=== PATIENT | male | born 1990 | race Caucasian/White ===

== ENCOUNTER 2016-11-18 23:45 | Emergency (ER) | payer SELFPAY ==
[~2016-11-18 23:45] MED LIST: APAP/HYDROCODON1 T13 PO; STOOL SOFTENER100 MG PO; ZOC10 PO
[2016-11-19 02:17] VITALS: BP 169/101
== END 2016-11-19 02:17 | disposition home or self-care (01) ==
LOC: ED 23:45
DX: J40 Bronchitis, not specified as acute or chronic (principal)
CPT/HCPCS: J7613; J7644

== ENCOUNTER 2016-12-01 20:21 | Emergency (ER) | payer OTHER ==
[2016-12-02 00:55] VITALS: BP 162/71
== END 2016-12-02 00:55 | disposition home or self-care (01) ==
LOC: ED 20:21
DX: S97.82XA Crushing injury of left foot, initial encounter (principal); X58.XXXA Exposure to other specified factors, initial encounter; Y93.89 Activity, other specified; Y99.8 Other external cause status; Y92.89 Other specified places as the place of occurrence of the external cause
CPT/HCPCS: J1885

== ENCOUNTER 2017-03-06 22:47 | Emergency (ER) | payer SELFPAY ==
[2017-03-07 03:00] VITALS: BP 165/87
== END 2017-03-07 03:00 | disposition home or self-care (01) ==
LOC: ED 22:47
DX: K59.00 Constipation, unspecified (principal); M54.9 Dorsalgia, unspecified; E66.01 Morbid (severe) obesity due to excess calories
CPT/HCPCS: J1885

== ENCOUNTER 2017-08-15 22:34 | Emergency (ER) | payer SELFPAY ==
[~2017-08-15] VITALS: Ht 188 cm; Wt 113.4 kg
[2017-08-15 22:41] VITALS: Ht 188 cm; Wt 113.4 kg
[2017-08-16 00:39] VITALS: BP 150/105
== END 2017-08-16 00:40 | disposition other institution (70) ==
LOC: ED 22:34
DX: F15.10 Other stimulant abuse, uncomplicated (principal); I10 Essential (primary) hypertension

== ENCOUNTER 2017-08-15 22:34 | Emergency (ER) | payer OTHER | END 2017-08-16 00:40 | disposition other institution (70) | LOC: ED 22:34 | DX: Z02.89 Encounter for other administrative examinations (principal) ==

== ENCOUNTER 2019-02-01 21:59 | Emergency (ER) | payer SELFPAY ==
[~2019-02-01] VITALS: Ht 190.5 cm; Wt 123.8 kg
[2019-02-01 22:19] VITALS: Ht 190.5 cm; Wt 123.8 kg
[2019-02-02 01:27] LABS: BASOPHIL % 0.4 % (0-2); PLATELET COUNT 273 x10^3mcL (130-400); RED CELL DISTRIBUTION WIDTH 14.1 % (11.5-14.5)
[2019-02-02 01:32] LABS: CALCIUM 9.3 mg/dL (8.5-10.1); CARBON DIOXIDE 31.5 mmol/L (21-32); CHLORIDE SERUM 103 mmol/L (98-107); GFR1 > 60 mL/min; GLUCOSE SERUM 97 mg/dL (74-106); POTASSIUM SERUM 3.3 mmol/L (3.5-5.1); SODIUM SERUM 142 mmol/L (136-145)
[2019-02-02 01:37] LABS: ALKALINE PHOSPHATASE 78 U/L (46-116); ALT/SGPT 34 U/L (16-63); AST/SGOT 17 U/L (15-37); BILIRUBIN TOTAL 0.88 mg/dL (0.20-1.00); TOTAL PROTEIN, SERUM 7.9 g/dL (6.4-8.2)
[2019-02-02 04:38] VITALS: BP 165/103
== END 2019-02-02 04:38 | disposition home or self-care (01) ==
LOC: ED 21:59
PROVIDERS: Emergency Medicine
DX: N34.2 Other urethritis (principal); I10 Essential (primary) hypertension; Z90.89 Acquired absence of other organs
CPT/HCPCS: 36415; 87491; 87591; J0696

== ENCOUNTER 2019-04-14 17:48 | Emergency (ER) | payer SELFPAY ==
[~2019-04-14] VITALS: Ht 182.9 cm; Wt 117.5 kg
[2019-04-14 17:59] VITALS: Ht 182.9 cm; Wt 117.5 kg
[2019-04-14 19:38] LABS: microscopic required? YES; urine erythrocyte 2+ (NEGATIVE)
[2019-04-14 20:03] VITALS: BP 147/93
== END 2019-04-14 20:03 | disposition home or self-care (01) ==
LOC: ED 17:48
PROVIDERS: Emergency Medicine
DX: N39.0 Urinary tract infection, site not specified (principal); I10 Essential (primary) hypertension; Z87.19 Personal history of other diseases of the digestive system; Z90.89 Acquired absence of other organs
CPT/HCPCS: J0696

== ENCOUNTER 2019-06-14 00:46 | Inpatient (IN) | payer SELFPAY ==
[~2019-06-14] VITALS: Ht 188 cm; Wt 119.4 kg
[2019-06-14 00:48] VITALS: Ht 188 cm; Wt 119.4 kg
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
--- NOTE | 2019-06-14 01:03 | NUR ---
AWAITING MSE AT THIS TIME
--- NOTE | 2019-06-14 01:05 | NUR ---
PT PLACED IN C COLLAR FOR SPINAL PROTECTION AND MAINTENANCE OF C-SPINE
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
--- NOTE | 2019-06-14 01:40 | NUR ---
PT ABLE TO EXPRESS THE NEED TO URINATE AND ABLE TO URINATE WITH HELP. PT STILL APPEARS LETHARGIC AND UNRESPONSIVE TO QUESTIONS. PT HAS MILD SPONTANEOUS EYE MOVEMENT
--- NOTE | 2019-06-14 01:55 | NUR ---
X RAY AT BEDSIDE
[2019-06-14 02:09] LABS: ALBUMIN 3.9 g/dL (3.4-5.0); ALKALINE PHOSPHATASE 79 U/L (46-116); ALT/SGPT 40 U/L (16-63); AST/SGOT 23 U/L (15-37); BILIRUBIN TOTAL 0.37 mg/dL (0.20-1.00); CALCIUM 8.7 mg/dL (8.5-10.1); CARBON DIOXIDE 32.2 mmol/L (21-32); CHLORIDE SERUM 101 mmol/L (98-107); CREATININE SERUM 1.1 mg/dL (0.7-1.3); GFR1 > 60 mL/min; GLUCOSE SERUM 99 mg/dL (74-106); SODIUM SERUM 142 mmol/L (136-145); TOTAL PROTEIN, SERUM 7.1 g/dL (6.4-8.2)
[2019-06-14 02:12] LABS: microscopic required? YES; urine erythrocyte NEGATIVE (NEGATIVE)
[2019-06-14 02:12] LABS: BASOPHIL % 0.4 % (0-2); RED CELL DISTRIBUTION WIDTH 13.5 % (11.5-14.5)
[2019-06-14 02:13] LABS: POTASSIUM SERUM 2.6 mmol/L (3.5-5.1)
[2019-06-14 02:26] LABS: AMPHETAMINE QUAL UR POSITIVE (See below)
[2019-06-14 02:27] LABS: PLATELET COUNT 295 x10^3mcL (130-400)
--- NOTE | 2019-06-14 02:55 | NUR ---
PT ABLE TO EXPRESS THAT IV IS BURNING DUE TO POTASSIUM ADMINISTRATION. MD SINGH MADE AWARE. AWAITING NEW MEDICATION ORDERS AT THIS TIME FOR NS TO RUN WITH K
--- NOTE | 2019-06-14 03:22 | NUR ---
C- SPINE CLEARED BY MD SINGH C COLLAR REMOVED AT THIS TIME PT ABLE TO SPEAK IN CLEAR AND FULL SENTENCES AND EXPRESS ALL NEEDS AND DESIRE TO LEAVE AT THIS TIME. FRIEND STILL AT BEDSIDE WITH PT
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
[2019-06-14 06:07] VITALS: BP 176/101
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
[2019-06-14 07:08] LABS: BASOPHIL % 0.7 % (0-2); PLATELET COUNT 254 x10^3mcL (130-400); RED CELL DISTRIBUTION WIDTH 14.4 % (11.5-14.5)
--- NOTE | 2019-06-14 07:20 | NUR ---
RECEIVED PT FROM WASHING MACHINE ASSEMBLER NURSE. PT IN BED SLEEPING, AROUSABLE, RESP E/U ON RA. NO SIGNS OF ACUTE DISTRESS NOTED. IV TO RAC W/ NO SIGNS OF INFILTRATION, IVF INFUSING WELL. BED IN LOWEST POSITION AND CALL LIGHT WITHIN REACH. WILL CONTINUE TO MONITOR.
[2019-06-14 07:25] LABS: CALCIUM 7.7 mg/dL (8.5-10.1); CARBON DIOXIDE 30.3 mmol/L (21-32); CHLORIDE SERUM 104 mmol/L (98-107); CREATININE SERUM 0.9 mg/dL (0.7-1.3); GFR1 > 60 mL/min; GLUCOSE SERUM 96 mg/dL (74-106); MAGNESIUM 1.7 mg/dL (1.8-2.4); PHOSPHOROUS 3.5 mg/dL (2.5-4.9); SODIUM SERUM 142 mmol/L (136-145)
[2019-06-14 07:46] LABS: POTASSIUM SERUM 2.9 mmol/L (3.5-5.1)
[2019-06-14 08:26] VITALS: BP 148/86
--- NOTE | 2019-06-14 11:38 | NUR ---
PT IN BED SLEEPING, AROUSABLE, RESP E/U ON RA. NO SIGNS OF ACUTE DISTRESS NOTED. BED IN LOWEST POSITION AND CALL LIGHT WITHIN REACH. WILL CONTINUE TO MONITOR.
[2019-06-14 12:25] LABS: BASOPHIL % 0.2 % (0-2); PLATELET COUNT 244 x10^3mcL (130-400); RED CELL DISTRIBUTION WIDTH 14.2 % (11.5-14.5)
[2019-06-14 12:28] LABS: CALCIUM 8.2 mg/dL (8.5-10.1); CARBON DIOXIDE 31.6 mmol/L (21-32); CHLORIDE SERUM 104 mmol/L (98-107); CREATININE SERUM 0.8 mg/dL (0.7-1.3); GFR1 > 60 mL/min; GLUCOSE SERUM 89 mg/dL (74-106); SODIUM SERUM 142 mmol/L (136-145)
[2019-06-14 12:35] LABS: POTASSIUM SERUM 2.8 mmol/L (3.5-5.1)
--- NOTE | 2019-06-14 12:40 | NUR ---
LAB CALLED FOR CRITICAL VALUE K: 2.8. DR. ROMO INFORMED AT THIS TIME, ORDERED FOR IV POTASSIUM AND FOR RECHECK OF LAB VALUE LATER THIS AFTERNOON.
--- NOTE | 2019-06-14 13:16 | NUR ---
Discount pharmacy card and list to low cost medical clinics given to patient by Shirley Gil.
[2019-06-14 17:08] VITALS: BP 159/104
[2019-06-14 17:14] LABS: CALCIUM 8.1 mg/dL (8.5-10.1); CARBON DIOXIDE 32.9 mmol/L (21-32); CHLORIDE SERUM 104 mmol/L (98-107); CREATININE SERUM 0.9 mg/dL (0.7-1.3); GFR1 > 60 mL/min; GLUCOSE SERUM 92 mg/dL (74-106); POTASSIUM SERUM 3.3 mmol/L (3.5-5.1); SODIUM SERUM 141 mmol/L (136-145)
[2019-06-14] MEDS ORDERED: POTASSIUM CHLO20 ME1 PO (17:33)
--- NOTE | 2019-06-14 18:05 | NUR ---
PT RESTING IN BED, AOX4, RESP E/U ON RA. DENIES NAUSEA, SOB OR PAIN, NO ACUTE DISTRESS NOTED. IV TO RAC W/ NO SIGNS OF INFILTRATION, IVF INFUSING WELL. DRESSING TO L ELBOW AND L KNEE CDI. BED IN LOWEST POSITION AND CALL LIGHT WITHIN REACH. WILL ENDORSE TO ONCOMING NURSE.
[2019-06-14 18:07] VITALS: BP 159/104
[2019-06-14 19:13] VITALS: BP 158/101
--- NOTE | 2019-06-14 19:15 | NUR ---
PT FOR DISCHARGE. PT AWAKE AND ALERT, ORIENTED TO NAME, PLACE, TIME AND SITUATION. STATED HIS COUSIN IS ALREADY HERE WITH PRIVATE AUTO TO BRING HOME. PT BREATHING EVEN AND UNLABORED ON ROOM AIR. NOTED DRY SCAB/ABRASSION TO BACK OF HEAD, LIZZETH. DRESSINGS TO LEFT ELBOW AND LEFT KNEE CLEAN, DRY AND INTACT. SALINE LOCK TO RIGHT AC.
--- NOTE | 2019-06-14 19:18 | NUR ---
NOTED ELECTRONIC PRESCRIPTION FOR POTASSIUM 20MEQ TABLET ONCE DAILY ALREADY SUCCESSFULLY SENT TO [facility]
--- NOTE | 2019-06-14 19:31 | NUR ---
SALINE LOCK REMOVED, INTACT. DISCHARGE INSTRUCTIONS PROVIDED, INCLUDING PRESCRIPTION FOR POTASSIUM TABLET ALREADY SENT TO [facility]. PT'S COUSIN IN ROOM TO BRING PT HOME. PT VERBALIZED UNDERSTANDING TO DISCHARGE INSTRUCTIONS, STATED HAS NO QUESTIONS. CHANGING TO STREET CLOTHES. SATINDER CHEUNG TO BRING PT TO LOBBY VIA WHEELCHAIR.
== END 2019-06-14 19:42 | disposition home or self-care (01) | DRG 88 ==
LOC: ED 00:46 → MU 04:26
PROVIDERS: Emergency Medicine; Internal Medicine; ADMIT Family Medicine
DX: S06.0X9A Concussion with loss of consciousness of unspecified duration, initial encounter (principal); G93.41 Metabolic encephalopathy; E87.6 Hypokalemia; E11.9 Type 2 diabetes mellitus without complications; I10 Essential (primary) hypertension; F12.90 Cannabis use, unspecified, uncomplicated; Z90.49 Acquired absence of other specified parts of digestive tract; Y93.89 Activity, other specified; Y92.89 Other specified places as the place of occurrence of the external cause; Y99.8 Other external cause status; V89.2XXA Person injured in unspecified motor-vehicle accident, traffic, initial encounter
CPT/HCPCS: 90715; G0378; G0480; J2001; J3480; J7030; Q0092; Q9967